=== PATIENT | male | born 1975 | race Caucasian/White ===

== ENCOUNTER 2024-05-16 07:10 | Day surgery (SDC) | payer OTHER, SELFPAY ==
[2024-05-16] VITALS (8 sets, daily range): BP systolic 115–131; BP diastolic 75–89; BMI 37.2
[2024-05-16] MEDS: NSS 1000 IV (11:19)
--- NOTE | 2024-05-16 18:06 | ITS.CL.CATH ---
Mechanical Project Engineer - Catheterization
Cardiac Catheterization
Procedure Report:
LEFT HEART CATHETERIZATION
Date of Procedure: May 16, 2024
Procedures performed:
1: Coronary angiography
2: Left ventricular hemodynamic assess
Primary Care Physician: HELLEN Awad
Primary Counter Former: Dr. Edwin Graham
INDICATION: The patient is a 48-year-old man with a past medical history significant for ADHD, psoriatic arthritis, obesity status post Lilli-en-Y bariatric surgery who presents with symptoms concerning for unstable angina. Echocardiography was
benign with a normal EKG.
ACCESS: The patient was prepped and draped in usual sterile fashion. A 5 Slovenian sheath was placed in the right radial artery using the Seldinger over the wire technique. Ultrasound guidance was used and the vessel was relatively small caliber so a
5 Slovenian system was chosen.
HEMODYNAMIC FINDINGS (mmHg):
LV(s/d,EDP): 120/17, 25
Ao(s/d,m): 120/78, 100
ANGIOGRAPHIC FINDINGS:
Single-plane Left Ventriculography in [place] Projection: Not done. Normal LV systolic function with no significant valvular disease, left ventricular hypertrophy, or diastolic dysfunction performed on May 15, 2024.
Coronary Angiography:
Dominance: Right
Left Main: Medium caliber, widely patent.
Left Anterior Descending: The left anterior descending artery is a relatively large caliber vessel that gives rise to 1 major high diagonal branch that bifurcates into 2 significant vessels. These vessels are widely patent with no focal disease and
normal distal flow.
Left Circumflex: The left circumflex artery is a relatively large nondominant system that gives rise to a small first obtuse marginal branch and terminates in a very large second obtuse marginal branch that courses to the lateral apex. These
vessels are widely patent with no focal disease and normal distal flow.
Right Coronary: The right coronary artery has an anterior takeoff which could not be selectively engaged initially with a 5 Slovenian JR4. It selectively engaged into the conus branch which appeared to cause some proximal spasm which subsequently was
shown to resolve with IC nitroglycerin given through a 5 Slovenian MP 2 diagnostic catheter. The MP2 catheter was ultimately successfully used to complete imaging. This showed that the right coronary artery is a relatively large caliber vessel that
gives rise to a somewhat diminutive posterior descending artery and 2 medium caliber posterior left ventricular branches. These vessels were free of focal disease with normal distal flow.
Fluoroscopy Time (min): 5.8
Radiation Dose (mGy): 621
DAP (Gy.cm2): 42
Closure device: None. A TR band was applied for hemostasis at the right wrist.
Complications: None.
ASSESSMENT:
1: Normal coronary arteries.
2: Elevated left ventricular filling pressures.
CONCLUSIONS and RECOMMENDATIONS:
1: Consider empiric antihypertensive therapy given elevated filling pressures. Clinical follow-up scheduled with Dr. Angie Graham. Consider noncardiac etiology for new symptoms.
Judah Grimes M.D.
Copy to: HELLEN Jung
== END 2024-05-16 12:30 | disposition home or self-care (01) ==
LOC: CATH 07:10
PROVIDERS: ATTENDING PHYSICIAN Internal Medicine Interventional Cardiology; FAMILY PHYSICIAN Nurse Practitioner Family; OTHER PHYSICIAN Internal Medicine Cardiovascular Disease
DX: R07.89 Other chest pain (principal); R06.02 Shortness of breath; F41.9 Anxiety disorder, unspecified; L40.50 Arthropathic psoriasis, unspecified; Z98.84 Bariatric surgery status; G40.909 Epilepsy, unspecified, not intractable, without status epilepticus; Z87.891 Personal history of nicotine dependence; Z82.49 Family history of ischemic heart disease and other diseases of the circulatory system; Z79.82 Long term (current) use of aspirin
CPT/HCPCS: 93458; C1769; C1894; Q9967